=== PATIENT | female | born 1995 | race Two or more races ===

== ENCOUNTER 2025-01-27 00:05 | Observation (INO) | payer MEDICAID, SELFPAY ==
[2025-01-27] VITALS (16 sets, daily range): BP systolic 113–180; BP diastolic 61–93; PULSE 77–88; RESP 18–98; TEMP 37.1; BMI 40.9
[2025-01-27 00:55] LABS: Collection Type, Urine Clean Catch; RBC,Urine 0 /hpf (0-3); WBC,Urine 0 /hpf (0-5)
[2025-01-27 00:57] LABS: Basophils % (Auto) 0 % (0-2.5); Eosinophils # (Auto) 0.2 Thou/mm3 (0.0-0.5); Eosinophils % (Auto) 2 % (0-10); Hematocrit 38.6 % (36.0-46.0); Hemoglobin 13.2 g/dL (12.0-16.0); Immature Granulocytes % (Auto) 0 % (0-0); Immature Granulocytes Auto 0.04 Thou/mm3 (0.00-0.00); Lymphocytes # (Auto) 1.8 Thou/mm3 (1.0-4.8); Lymphocytes % (Auto) 16 % (10-50); Mean Corpuscular HGB Conc 34.2 g/dl (31.0-37.0); Mean Corpuscular Hemoglobin 27.7 pg (25.0-35.0); Mean Corpuscular Volume 81 fL (80-100); Monocytes # (Auto) 0.7 Thou/mm3 (0.0-0.8); Monocytes % (Auto) 7 % (0-12); Neutrophils # (Auto) 8.2 Thou/mm3 (1.8-7.7); Neutrophils % (Auto) 75 % (37-80); Nucleated Red Blood Cell % 0 /100 WBC (0); Platelet Count 146 Thou/mm3 (140-440); RDW Standard Deviation 39.5 fL (36.4-46.3); Red Blood Count 4.77 Miln/mm3 (4.00-5.20)
[2025-01-27 01:35] LABS: Bacteria,Urine Rare; Bilirubin,Urine Negative (Negative); Blood,Urine Negative (Negative); Clarity,Urine Clear (Clear/Hazy); Color,Urine Colorless (Lt Yel-Yel); Glucose, Urine Negative (Negative); Ketones,Urine Negative (Negative); Leukocyte Esterase,Urine Negative (Negative); Nitrite,Urine Negative (Negative); Protein,Urine Negative (Neg - Trace); Specific Gravity,Urine 1.005 (1.001-1.035); Squamous Epithelial Cell,Urine 2 /hpf (0-5); Urobilinogen,Urine Negative mg/dL (0.0-1.0)
[2025-01-27 01:48] LABS: INR 0.9 (0.9-1.3); Partial Thromboplastin Time 28.1 Seconds (22.0-36.0); Prothrombin Time 10.3 Seconds (9.0-12.2)
[2025-01-27 01:49] LABS: Alanine Aminotransferase 8 U/L (10-49); Albumin, Serum 3.9 gm/dL (3.5-5.0); Albumin/Globulin Ratio 1.6 (1.2-2.2); Alkaline Phosphatase 91 U/L (46-116); Anion Gap 10 (7-16); Aspartate Amino Transferase 17 U/L (0-34); BUN/Creatinine Ratio 26 Ratio (12-20); Bilirubin,Total 0.4 mg/dL (0.3-1.2); Blood Urea Nitrogen 13 mg/dL (9-23); Calcium (Corrected) 10.1 mg/dL (8.5-10.1); Carbon Dioxide 22.1 mMol/L (20.0-31.0); Chloride 106 mMol/L (98-107); Creatinine (Component) 0.5 mg/dL (0.6-1.3); Estimated Creatinine Clearance 167.3 mL/min (>60); Globulin 2.5 gm/dL (2.3-3.5); Glucose 103 mg/dL (74-106); Osmolality,Calculated 275 (275-295); Potassium 3.8 mMol/L (3.4-5.1); Sodium 138 mMol/L (136-145); Total Protein 6.4 gm/dL (5.7-8.2); Uric Acid 6.1 mg/dL (3.1-7.8); eGFR > 60 See Note
[2025-01-27 02:17] LABS: Fibrinogen 617 mg/dL (175-375)
== END 2025-01-27 04:46 | disposition home or self-care (01) ==
PROVIDERS: Admitting Provider Obstetrics & Gynecology; Visit Provider Obstetrics & Gynecology
DX: O47.1 False labor at or after 37 completed weeks of gestation (principal); Z3A.37 37 weeks gestation of pregnancy
CPT/HCPCS: 36415; 59899; 80053; 81001; 84550; 85025; 85384; 85610; 85730; G0378

== ENCOUNTER 2025-01-29 08:58 | Observation (INO) | payer MEDICAID, SELFPAY ==
[2025-01-29 09:04] VITALS: RESP 18; TEMP 37; BMI 40.8
[2025-01-29 09:11] VITALS: BP 157/89; PULSE 88
[2025-01-29 09:18] VITALS: BP 109/69; PULSE 88
--- NOTE | 2025-01-29 09:32 | PC.NURSE ---
DR CUBA CALLED AND GIVEN SBAR. 1ST BP READING AND FOLLOW UP GIVEN TO PROVIDER. PROVIDER WILL BE OVER TO SEE PT AND WOULD LIKE A SPECULUM. RN WILL GET THING READY FOR PROVIDER.
[2025-01-29 09:33] VITALS: BP 114/76; PULSE 82
[2025-01-29 09:48] VITALS: BP 116/71; PULSE 82
--- NOTE | 2025-01-29 10:00 | P.TNLD_ITS ---
Documentation for date of: 01/29/25 Hx History Provider: SHANIQUA Attending Provider: BEREKET : 1 Para: 0 Term: 0 : 0 Number of Living Children: 0 Abortions: Spontaneous & Elective: 0 # of Vaginal Deliveries:: 0 Hx Section: No Hx Vaginal Delivery Post : No Gestation Info Final MORGAN: 02/17/25 Complaint Complaint Complaint: LEAKING 06:00 CLEAR. 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
--- NOTE | 2025-01-29 10:01 | PC.NURSE ---
DR CUBA AT BEDSIDE ASSESSING PT. SPECULUM USED TO VISUALIZED VAGINAL CANAL NO LEAKING OF FLUID AND DR HAD PT COUGH AND NO FLUID VISUALIZED PER PROVIDER AFTER COUGH. PT CLEARED FOR DISCHARGE. VERBAL ORDER GIVEN
== END 2025-01-29 10:16 | disposition home or self-care (01) ==
PROVIDERS: Admitting Provider Student in an Organized Health Care Education/Training Program; Visit Provider Student in an Organized Health Care Education/Training Program
DX: Z34.03 Encounter for supervision of normal first pregnancy, third trimester (principal); Z3A.37 37 weeks gestation of pregnancy
CPT/HCPCS: 59025; 59899

== ENCOUNTER 2025-02-04 14:35 | Outpatient (RCR) | payer MEDICAID, SELFPAY ==
--- NOTE | 2025-01-14 14:32 | XR_ITS ---
Examination: Biophysical profile, ultrasound Date and time of exam: January 14, 2025 1504 hours INDICATIONS: Diagnosis diabetes Technique: Multiple transabdominal sonographic images of the pelvis abdomen obtained. Attention is directed to the breathing movement, gross body movement, amniotic fluid volume and tone. Findings: Amniotic fluid index 18.9 cm Total biophysical profile is 8 of 8. breathing movement is 2. Gross body movement is 2. tone is 2. Qualitative amniotic fluid volume is 2 Impression: Biophysical profile is 8 of 8.
[2025-01-14 15:27] VITALS: BP 138/80; PULSE 84; RESP 16
--- NOTE | 2025-01-17 14:09 | XR_ITS ---
Examination: Biophysical profile, ultrasound Date and time of exam: January 17, 2025 1412 hours INDICATIONS: Diagnosis pre-existing diabetes Technique: Multiple transabdominal sonographic images of the pelvis abdomen obtained. Attention is directed to the breathing movement, gross body movement, amniotic fluid volume and tone. Findings: 21.1 amniotic fluid index Total biophysical profile is 8 of 8. breathing movement is 2. Gross body movement is 2. tone is 2. Qualitative amniotic fluid volume is 2 Impression: Biophysical profile is 8 of 8.
[2025-01-17 14:56] VITALS: BP 140/84; PULSE 84; RESP 16; TEMP 37
--- NOTE | 2025-01-17 15:19 | PD.LDNST ---
Documentation for date of: 29 yrs old with diabetes for NST. sonogram show ROHIT ~ 21 cm. DENIES RESPIRATORY COMPLAINTS. HOME GLUCOSE LOG SHOW FBS IN RANGE OF 90. TODAY NST = REACTIVE PATTERN. NO COMPLAINTS. HAS SCHEDULED APPOINTMENT TOMORROW Antepartum Testing Patient Information Reason for Test: TYPE 2 DM ON INSULIN LMP: 05/04/24 EDC: 02/17/25 Gestational Age (weeks): 35 Gestational Age (days): 4 : 1 Para: 0 Date of Last Test: 01/14/25 Last Oral Intake: ATE AT 13:00 Clincal Data Temperature: 98.6 F Blood Pressure: 140/84 Respiratory Rate: 16 Pulse Rate: 84 Non-Stress Test Baseline FHR: 135 Non-Stress Test Result: Reactive Non-Stress Test Comment: PT HERE FOR SCHEDULED BPP/NST. PT REPORTS MOVEMENT AT THIS TIME. DENIES BLEEDING, NO LEAKING OF FLUID, NO REPORTS OF PAIN. PLACED ON EFM X 2. ABD SOFT TO PALPATION. MOVEMENT PALPATED WHILE PLACING MONITOR PARTS. Follow-Up Reschedule Date: 01/21/25 Reschedule Time: 15:30 US Results BPP: 05/10 ROHIT: 21.0
[2025-01-17 15:23] VITALS: BP 140/84; PULSE 84; RESP 16; TEMP 37
--- NOTE | 2025-01-21 14:29 | XR_ITS ---
Examination: Biophysical profile, ultrasound Date and time of exam: January 21, 2025 1500 hours INDICATIONS: Diagnosis diabetes Technique: Multiple transabdominal sonographic images of the pelvis abdomen obtained. Attention is directed to the breathing movement, gross body movement, amniotic fluid volume and tone. Findings: Amniotic fluid index 15.4 cm Total biophysical profile is 8 of 8. breathing movement is 2. Gross body movement is 2. tone is 2. Qualitative amniotic fluid volume is 2 Impression: Biophysical profile is 8 of 8.
[2025-01-21 15:43] VITALS: BP 142/89; PULSE 85; RESP 16; TEMP 36.9
--- NOTE | 2025-01-24 14:29 | XR_ITS ---
Examination: Biophysical profile, ultrasound Date and time of exam: January 24, 2025 1454 hours INDICATIONS: Diagnosis pre-existing diabetes Technique: Multiple transabdominal sonographic images of the pelvis abdomen obtained. Attention is directed to the breathing movement, gross body movement, amniotic fluid volume and tone. Findings: Amniotic fluid index 18.3 cm Total biophysical profile is 8 of 8. breathing movement is 2. Gross body movement is 2. tone is 2. Qualitative amniotic fluid volume is 2 Impression: Biophysical profile is 8 of 8.
[2025-01-24 15:31] VITALS: BP 136/80; PULSE 84; RESP 18; TEMP 36.9
--- NOTE | 2025-01-28 14:32 | XR_ITS ---
Examination: Biophysical profile, ultrasound Date and time of exam: January 20, 2025 1436 hours INDICATIONS: Diagnosis diabetes Technique: Multiple transabdominal sonographic images of the pelvis abdomen obtained. Attention is directed to the breathing movement, gross body movement, amniotic fluid volume and tone. Findings: Amniotic fluid index 13.9 cm Total biophysical profile is 8 of 8. breathing movement is 2. Gross body movement is 2. tone is 2. Qualitative amniotic fluid volume is 2 Impression: Biophysical profile is 8 of 8.
[2025-01-28 15:20] VITALS: BP 130/66; PULSE 85; RESP 16; TEMP 36.7
--- NOTE | 2025-02-04 14:40 | XR_ITS ---
Examination: Biophysical profile, ultrasound Date and time of exam: February 04, 2025 1443 hours INDICATIONS: Diagnosis type 2 diabetes Technique: Multiple transabdominal sonographic images of the pelvis abdomen obtained. Attention is directed to the breathing movement, gross body movement, amniotic fluid volume and tone. Findings: Amniotic fluid index 13.2 cm Total biophysical profile is 8 of 8. breathing movement is 2. Gross body movement is 2. tone is 2. Qualitative amniotic fluid volume is 2 Impression: Biophysical profile is 8 of 8.
[2025-02-04 15:59] VITALS: BP 133/69; PULSE 85; RESP 16; TEMP 36.7
== END 2025-02-04 23:59 | disposition home or self-care (01) ==
LOC: S4S1 14:35
PROVIDERS: PCP Family Medicine; Referring Provider Student in an Organized Health Care Education/Training Program; Visit Provider Student in an Organized Health Care Education/Training Program
DX: O24.113 Pre-existing type 2 diabetes mellitus, in pregnancy, third trimester (principal); E11.9 Type 2 diabetes mellitus without complications; Z3A.38 38 weeks gestation of pregnancy; Z79.4 Long term (current) use of insulin
CPT/HCPCS: 59025; 76819

== ENCOUNTER 2025-02-04 21:58 | Observation (INO) | payer MEDICAID, SELFPAY ==
[2025-02-04] VITALS (20 sets, daily range): BP systolic 138–168; BP diastolic 83–90; PULSE 90–106; RESP 16–98; TEMP 36.6; O2SAT 95–98; BMI 41.2
--- NOTE | 2025-02-04 23:31 | PD.LDTRIAGE2 ---
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 Assessment Systems Assessment Systems With in Normal Limits: Yes Contractions Evaluation Contractions Monitor Mode: External Contraction Frequency: 1-6 Contraction Duration: 40-120 Resting Tone Palpate: Soft Contraction Intensity: Mild Sterile Vaginal Exam Cervical Dilatation: 4 Cervical Effacement: 50 Station: -3 Vaginal Bleeding Vaginal Bleeding Amount: None Heart Monitoring Heart Rate Assessment Monitor Mode: External FHR Baseline: 135 Variability: Moderate Accelerations: 15x15 FHR Pattern Category: Category l Movement Reported: Yes NST Reactive: Yes WNL for GA: Yes Assessment Comment: audible movement Amniotic Membranes Amniotic Membranes Amniotic Membrane Status: Intact Social risk screen Social Risk Screening Observed or verbalized signs of abuse or neglect: No 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 pt denies headache, blurry vision, RUQ/epig pain, leaking of fluid, or vaginal bleeding. pt reports type 2 DM, positive movement and UCs. pt takes 16u novalog insulin with meals, 28U lantus at 0800 and 40U lantus at 2200. pt rates contraction pain 4/10 on pain scale.
--- NOTE | 2025-02-04 23:35 | PD.LDTRIAGE2 ---
Documentation for date of: 02/04/25 Hx History Provider: Melody Bernal Attending Provider: Ghassan Garvey : 1 Para: 0 Term: 0 : 0 Number of Living Children: 0 Abortions: Spontaneous & Elective: 0 # of Vaginal Deliveries:: 0 Hx Section: No Hx Vaginal Delivery Post : No Gestation Info Final MORGAN: 02/17/25 Gestational Age (weeks): 37 Gestational Age (days): 6 Complaint Complaint Complaint: UCs q5-10 min; high BP reading at home. PEDAL EDEMA PAST 2 WEEKS. 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 Assessment Systems Assessment Systems With in Normal Limits: Yes Contractions Evaluation Contractions Monitor Mode: External Contraction Frequency: 1-6 Contraction Duration: 40-120 Resting Tone Palpate: Soft Contraction Intensity: Mild Sterile Vaginal Exam Cervical Dilatation: 4 Cervical Effacement: 50 Station: -3 Vaginal Bleeding Vaginal Bleeding Amount: None Heart Monitoring Heart Rate Assessment Monitor Mode: External FHR Baseline: 135 Variability: Moderate Accelerations: 15x15 FHR Pattern Category: Category l Movement Reported: Yes NST Reactive: Yes WNL for GA: Yes Assessment Comment: audible movement Amniotic Membranes Amniotic Membranes Amniotic Membrane Status: Intact Social risk screen Social Risk Screening Observed or verbalized signs of abuse or neglect: No Shingle Cutter Referral: No RN Notes Notes LD Triage Comment: 2155: pt is at 38.1 wks who presents to triage c/o UCs q5-10 mins apart and a high BP reading at home (170/108). pt denies headache, blurry vision, RUQ/epig pain, leaking of fluid, or vaginal bleeding. pt reports type 2 DM, positive movement and UCs. pt takes 16u novalog insulin with meals, 28U lantus at 0800 and 40U lantus at 2200. pt rates contraction pain 4/10 on pain scale. WILL REPEAT BP OVER 39 MINUTES. GET [facility] LAB INCLUDE LFT, URIC ACID CBC, URINE FOR PROTEIN/ CREATININE RATIO
[2025-02-04 23:58] LABS: Collection Type, Urine Clean Catch
[2025-02-05] VITALS (12 sets, daily range): BP systolic 121–139; BP diastolic 74–87; PULSE 89–101; O2SAT 94–97
[2025-02-05 00:04] LABS: Basophils % (Auto) 0 % (0-2.5); Eosinophils # (Auto) 0.3 Thou/mm3 (0.0-0.5); Eosinophils % (Auto) 3 % (0-10); Hematocrit 38.8 % (36.0-46.0); Hemoglobin 13.8 g/dL (12.0-16.0); Immature Granulocytes % (Auto) 0 % (0-0); Immature Granulocytes Auto 0.04 Thou/mm3 (0.00-0.00); Lymphocytes # (Auto) 1.9 Thou/mm3 (1.0-4.8); Lymphocytes % (Auto) 17 % (10-50); Mean Corpuscular HGB Conc 35.6 g/dl (31.0-37.0); Mean Corpuscular Volume 79 fL (80-100); Monocytes # (Auto) 0.6 Thou/mm3 (0.0-0.8); Monocytes % (Auto) 5 % (0-12); Neutrophils # (Auto) 8.6 Thou/mm3 (1.8-7.7); Neutrophils % (Auto) 75 % (37-80); Nucleated Red Blood Cell % 0 /100 WBC (0); Platelet Count 167 Thou/mm3 (140-440); RDW Standard Deviation 39.6 fL (36.4-46.3); Red Blood Count 4.92 Miln/mm3 (4.00-5.20); White Blood Count 11.5 Thou/mm3 (3.6-11.0)
[2025-02-05 00:07] LABS: Bilirubin,Urine Negative (Negative); Blood,Urine Negative (Negative); Clarity,Urine Clear (Clear/Hazy); Color,Urine Colorless (Lt Yel-Yel); Glucose, Urine Negative (Negative); Ketones,Urine Negative (Negative); Leukocyte Esterase,Urine Positive (Negative); Nitrite,Urine Negative (Negative); Protein,Urine Negative (Neg - Trace); RBC,Urine 2 /hpf (0-3); Specific Gravity,Urine 1.008 (1.001-1.035); Squamous Epithelial Cell,Urine 3 /hpf (0-5); Urobilinogen,Urine Negative mg/dL (0.0-1.0); WBC,Urine 3 /hpf (0-5)
[2025-02-05 00:29] LABS: Alanine Aminotransferase 9 U/L (10-49); Albumin/Globulin Ratio 1.5 (1.2-2.2); Alkaline Phosphatase 120 U/L (46-116); Anion Gap 10 (7-16); Aspartate Amino Transferase 19 U/L (0-34); BUN/Creatinine Ratio 20 Ratio (12-20); Bilirubin,Total 0.3 mg/dL (0.3-1.2); Blood Urea Nitrogen 12 mg/dL (9-23); Calcium 9.6 mg/dL (8.3-10.6); Calcium (Corrected) 9.6 mg/dL (8.5-10.1); Carbon Dioxide 21.8 mMol/L (20.0-31.0); Chloride 105 mMol/L (98-107); Creatinine (Component) 0.6 mg/dL (0.6-1.3); Estimated Creatinine Clearance 139.9 mL/min (>60); Globulin 2.6 gm/dL (2.3-3.5); Glucose 95 mg/dL (74-106); Osmolality,Calculated 273 (275-295); Potassium 3.9 mMol/L (3.4-5.1); Sodium 137 mMol/L (136-145); Total Protein 6.6 gm/dL (5.7-8.2); Uric Acid 5.7 mg/dL (3.1-7.8); eGFR > 60 See Note
[2025-02-05 01:01] LABS: Fibrinogen 602 mg/dL (175-375); INR 0.9 (0.9-1.3); Partial Thromboplastin Time 26.6 Seconds (22.0-36.0); Prothrombin Time 9.8 Seconds (9.0-12.2)
[2025-02-05 01:17] LABS: Creatinine,Random Urine 26 mg/dL (30-125); Protein Total, Random Urine 12 mg/dL (1-14)
--- NOTE | 2025-02-05 01:23 | PD.LDTRIAGE2 ---
Documentation for date of: 02/05/25 Hx History Provider: Melody Bernal Attending Provider: Ghassan Garvey : 1 Para: 0 Term: 0 : 0 Number of Living Children: 0 Abortions: Spontaneous & Elective: 0 # of Vaginal Deliveries:: 0 Hx Section: No Hx Vaginal Delivery Post : No Gestation Info Final MORGAN: 02/17/25 Gestational Age (weeks): 37 Gestational Age (days): 6 Complaint Complaint Complaint: UCs q5-10 min; high BP reading at home. PEDAL EDEMA PAST 2 WEEKS. DENIES HEADACHES OR SCOTOMA 02/05/2025 REPEAT BP IN THE PAST 30 MINUTES HAVE BEEN NORMAL. LAB : NORMAL PLATELETS, NORMAL URIC ACID LEVEL, LFT = WNL. 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 Systems Assessment Systems Assessment Systems With in Normal Limits: Yes Contractions Evaluation Contractions Monitor Mode: External Contraction Frequency: 2-4 Contraction Duration: 90-120 Resting Tone Palpate: Soft Contraction Intensity: Mild Sterile Vaginal Exam Cervical Dilatation: 4 Cervical Effacement: 50 Station: -3 Vaginal Bleeding Vaginal Bleeding Amount: None Heart Monitoring Heart Rate Assessment Monitor Mode: External FHR Baseline: 135 Variability: Moderate Accelerations: 15x15 FHR Pattern Category: Category l FHT Interventions: Turn to Right Side and Turn to Left Side Movement Reported: Yes NST Reactive: Yes WNL for GA: Yes Assessment Comment: indeterminant deceleration- pt was just placed on monitor and repositioning self Amniotic Membranes Amniotic Membranes Amniotic Membrane Status: Intact Social risk screen Social Risk Screening Observed or verbalized signs of abuse or neglect: No 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 pt denies headache, blurry vision, RUQ/epig pain, leaking of fluid, or vaginal bleeding. pt reports type 2 DM, positive movement and UCs. pt takes 16u novalog insulin with meals, 28U lantus at 0800 and 40U lantus at 2200. pt rates contraction pain 4/10 on pain scale. WILL REPEAT BP OVER 39 MINUTES. GET [facility] LAB INCLUDE LFT, URIC ACID CBC, URINE FOR PROTEIN/ CREATININE RATIO
== END 2025-02-05 01:25 | disposition home or self-care (01) ==
PROVIDERS: Admitting Provider Obstetrics & Gynecology; Visit Provider Obstetrics & Gynecology
DX: O47.1 False labor at or after 37 completed weeks of gestation (principal); Z3A.38 38 weeks gestation of pregnancy; O24.913 Unspecified diabetes mellitus in pregnancy, third trimester; Z79.4 Long term (current) use of insulin; O26.893 Other specified pregnancy related conditions, third trimester; R03.0 Elevated blood-pressure reading, without diagnosis of hypertension
CPT/HCPCS: 36415; 59025; 59899; 80053; 81001; 82570; 84156; 84550; 85025; 85384; 85610; 85730; G0378

== ENCOUNTER 2025-02-06 22:25 | Inpatient (IN) | payer MEDICAID, SELFPAY ==
[2025-02-06] VITALS (8 sets, daily range): BP systolic 140–162; BP diastolic 81–95; PULSE 98–112; RESP 15–99; TEMP 36.6; BMI 41.2
--- NOTE | 2025-02-06 23:21 | PD.LDHP ---
Documentation for date of: 02/06/25 OB Labor/Induct. HPI History of Present Illness : 1 Para: 0 Term pregnancies: 0 pregnancies: 0 Living children: 0 History of Abortions: Spontaneous and Elective: 0 History of Vaginal deliveries: 0 History of sections: No History of : No MORGAN: 02/17/25 History of present illness: 29 y/o @38w3d, presented to triage with contractions and vaginal bleeding. Patient has pregestational diabetes complicating this and was taking novolog 16 before each meal and 28/40 lantus. Hba1c In [facility] beginning of care was 10 which in third trimester has been in 6-7 range. Debby was scheduled for an IOL tomorrow. Of note , patient presented 2 days ago with elevated BP readings and was discharged home by the superintendent production provider after preeclampsia labs were within normal range. Her BP however were elevated with non persistent sever range. Today on arrival debby has elevated BP, denied any headache, blurred vision and chest pain. History of Present Dating criteria: LMP confirmed by 1st trimester US Adequate Care: Yes Narrative: Anatomy posterior placenat no previa Past Medical History Surgical History SURGICAL: Negative Section Meds Home Medications and Allergies Home Medications ?Medication ?Instructions ?Recorded ?Confirmed ?Type aspirin 81 mg chewable tablet 1 tab PO QDAY 02/04/25 02/07/25 History folic acid 1 mg tablet 1 mg PO QDAY 02/04/25 02/07/25 History insulin aspart U-100 100 unit/mL 16 unit subcut .with meals 02/04/25 02/07/25 History subcutaneous solution (Novolog U-100 Insulin aspart) insulin glargine 100 unit/mL 28 unit subcut .AM 02/04/25 02/07/25 History subcutaneous solution (Lantus U-100 Insulin) vit no.95-ferrous 1 tab PO QDAY 02/04/25 02/07/25 History fumarate 28 mg-folic acid 800 mcg tablet () Allergies Allergy/AdvReac Type Severity Reaction Status Date / Time No Known Allergies Allergy Verified 02/07/25 02:31 OB Exam Physical Exam Vital signs: Temp Pulse Resp BP 97.9 F 106 H 15 162/89 H 02/06/25 22:45 02/06/25 23:18 02/06/25 22:45 02/06/25 23:18 Constitutional Constitutional: no acute distress Routine HEENT Exam Head: Present normocephalic and atraumatic Eye: Present EOMI and PERRL ENT: Present mucous membranes moist Routine Neck Exam Neck: Present supple and trachea midline Routine Cardiovascular Exam Cardiovascular: Present RRR Routine Abdominal Exam Abdominal: Present soft and normoactive bowel sounds Detailed Labor and Delivery Exam Dilation (cm): 4-5 station: -3 Comments: contractions 3-4 min apart vaginal bleeding + category 1 FHT Routine Extremities Exam Extremities: Present full ROM Routine Skin Exam Skin: Present intact, dry and warm Routine Neurological Exam Neurological: Present alert, oriented X3 and CN II-XII intact Routine Psychiatric Exam Psychiatric: Present normal affect and normal thought process OB Results Labs 02/06/25 00:00 02/06/25 00:00 Impressions Impression: 29 y/o @ 38w3d admitetd for Augmentation of labor for pregestational Diabetes on insulin and GHTN, possible preeclampsia Preclampsia labs pending US for ruling out placental abruption, Presentation and EFW GBS -ve 4-5 /50/-3 type2 dm on insulin BS 4 times daily Labetalol to be started I called back again at 4 am as I had not gotten an update on [facility] preclampsia labs. Debby on chart review had normal preclampsia labs except for elevated fibrinogen( possible from oregnancy). BP were in severe ranges around 2 am , but I was not called about it. she had recived labetalol 400 on admission and is getting ready to have an epidural. Anticipating BP drop ,I ordered labetalol 200 only if after epidural th eBP is still at 150 systolivc or higher. Currently debby is 6 cm . BS q4 as she is starting pitocin. US on image review was cephalic , no abruption noted and efw 3500 on prelim report as per Rohan. OB Assessment & Plan Additional Plan Additional Plan Comment: admit to L&D
[2025-02-07] VITALS (265 sets, daily range): BP systolic 94–210; BP diastolic 60–128; PULSE 83–124; RESP 9–29; TEMP 36.8–38.1; O2SAT 85–100; BMI 41.2
--- NOTE | 2025-02-07 | XR_ITS ---
Examination: Complete OB ultrasound greater than 14 weeks Date and time of exam: February 07, 2025 0116 hours INDICATIONS: Vaginal bleeding and pelvic contractions today Findings: Viable intrauterine single fetus with single amniotic sac presentation cephalic Cardiac motion 137 BPM Placenta fundal grade 2 Umbilical cord insertion seen Amniotic fluid index 13.2 cm Ovaries and cervix obscured by bowel gas Mild hydroceles Composite estimated gestational age based on BPD, head circumference, abdominal circumference, femur length is 38 weeks 5 days Estimated weight 3551.9 g. Survey of intracranial anatomy, spinal anatomy, abdominal anatomy, four-chamber heart performed with no abnormalities identified. Impression: Viable intrauterine gestation cephalic presentation.
[2025-02-07] MEDS: RINGERS LACTATED 1000 ML 1,000 ML 125 ML IV ×2 (00:15→13:51)
[2025-02-07] MEDS: LABETALOL 100 MG TABLET 400 MG PO ×2 (00:18→09:16)
[2025-02-07 00:27] LABS: Collection Type, Urine Clean Catch
[2025-02-07 00:32] LABS: Basophils % (Auto) 0 % (0-2.5); Eosinophils # (Auto) 0.2 Thou/mm3 (0.0-0.5); Eosinophils % (Auto) 1 % (0-10); Hematocrit 38.7 % (36.0-46.0); Hemoglobin 13.3 g/dL (12.0-16.0); Immature Granulocytes % (Auto) 0 % (0-0); Immature Granulocytes Auto 0.04 Thou/mm3 (0.00-0.00); Lymphocytes # (Auto) 1.6 Thou/mm3 (1.0-4.8); Lymphocytes % (Auto) 11 % (10-50); Mean Corpuscular HGB Conc 34.4 g/dl (31.0-37.0); Mean Corpuscular Hemoglobin 27.8 pg (25.0-35.0); Mean Corpuscular Volume 81 fL (80-100); Monocytes # (Auto) 0.8 Thou/mm3 (0.0-0.8); Monocytes % (Auto) 6 % (0-12); Neutrophils # (Auto) 12.1 Thou/mm3 (1.8-7.7); Neutrophils % (Auto) 82 % (37-80); Nucleated Red Blood Cell % 0 /100 WBC (0); Platelet Count 157 Thou/mm3 (140-440); RDW Standard Deviation 39.9 fL (36.4-46.3); Red Blood Count 4.79 Miln/mm3 (4.00-5.20); White Blood Count 14.7 Thou/mm3 (3.6-11.0)
[2025-02-07 00:38] LABS: Bilirubin,Urine Negative (Negative); Blood,Urine 3+ (Negative); Clarity,Urine Turbid (Clear/Hazy); Glucose, Urine Negative (Negative); Ketones,Urine Negative (Negative); Leukocyte Esterase,Urine Positive (Negative); Nitrite,Urine Negative (Negative); Protein,Urine 1+ (Neg - Trace); RBC,Urine 905 /hpf (0-3); Specific Gravity,Urine 1.012 (1.001-1.035); Squamous Epithelial Cell,Urine 4 /hpf (0-5); Urobilinogen,Urine Negative mg/dL (0.0-1.0); WBC,Urine 53 /hpf (0-5)
[2025-02-07 00:44] LABS: Color,Urine Yellow (Lt Yel-Yel)
[2025-02-07 00:48] LABS: Alanine Aminotransferase 10 U/L (10-49); Albumin, Serum 3.9 gm/dL (3.5-5.0); Albumin/Globulin Ratio 1.4 (1.2-2.2); Alkaline Phosphatase 115 U/L (46-116); Anion Gap 10 (7-16); Aspartate Amino Transferase 19 U/L (0-34); BUN/Creatinine Ratio 23 Ratio (12-20); Bilirubin,Total 0.4 mg/dL (0.3-1.2); Blood Urea Nitrogen 14 mg/dL (9-23); Calcium (Corrected) 9.1 mg/dL (8.5-10.1); Carbon Dioxide 22.9 mMol/L (20.0-31.0); Chloride 105 mMol/L (98-107); Creatinine (Component) 0.6 mg/dL (0.6-1.3); Globulin 2.7 gm/dL (2.3-3.5); Glucose 109 mg/dL (74-106); LDH (Lactate Dehydrogenase) 196 U/L (120-246); Osmolality,Calculated 277 (275-295); Potassium 3.8 mMol/L (3.4-5.1); Sodium 138 mMol/L (136-145); Total Protein 6.6 gm/dL (5.7-8.2); Uric Acid 6.2 mg/dL (3.1-7.8); eGFR > 60 See Note
[2025-02-07 01:06] LABS: Syphilis Nonreactive (Nonreactive)
[2025-02-07 01:28] LABS: INR 0.9 (0.9-1.3); Partial Thromboplastin Time 27.6 Seconds (22.0-36.0); Prothrombin Time 9.9 Seconds (9.0-12.2)
[2025-02-07 01:29] LABS: Fibrinogen 703 mg/dL (175-375)
[2025-02-07] MEDS: fentaNYL CIT INJ 50 mCg/ML AMP 2ML 100 MCG IV (02:02)
--- NOTE | 2025-02-07 03:09 | PRELIM_ITS ---
Obstetric ultrasound with Doppler. February 07, 2025 at 0116 hours Clinical history: Vaginal bleeding, EFW, presentation. Comparison: None. Findings: There is a gravid uterus with a live fetus in cephalic presentation of mean gestational age 38 weeks and 5 days (by biometry). cardiac activity is present at a heart rate of 137 beats per minute. The placenta is fundal in location, grade 2. There is no evidence of placenta previa or retroplacental hemorrhage. Amniotic fluid is adequate (ROHIT = 13.2 cm). Estimated weight is 3552 grams. No abnormalities detected by Doppler. Bilateral hydroceles. Impression: Gravid uterus with a single live fetus in cephalic presentation of mean gestational age 38 weeks 5 days. Bilateral hydroceles. Please, correlate clinically. Report Electronically Signed By: Omar Euceda 02/07/2025 3:07:56 AM [EST]
--- NOTE | 2025-02-07 13:40 | PD.LDPN ---
Documentation for date of: 02/07/25 OB Labor Progress Note Pelvic Exam Dilation (cm): 9 Effacement (%): 90 station: 0 Amniotic membrane status: Ruptured Comments: Thin meconium Contractions Monitor mode: External Contraction frequency: 3-4 Contraction intensity: Strong Status status: Category l Assessment and Plan Comments: Gestational HTN Anticipate Labetalol 20mg IV push Informed consent obtained. Patient made aware of the risks complications alternatives and benefits of Operative Vaginal Delivery and C/S and agrees with these modes of delivery if indicated.
[2025-02-07] MEDS: LABETALOL INJ 5 MG/ML VIAL 20 ML 20 MG IVP (13:53)
[2025-02-07] MEDS: hydrALAZINE INJ 20 MG/ML VIAL 10 MG IV (14:34)
--- NOTE | 2025-02-07 15:55 | PD.LDPN ---
Documentation for date of: 02/07/25 OB Labor Progress Note Pelvic Exam Dilation (cm): 9 Effacement (%): 90 station: -1 Amniotic membrane status: Ruptured Comments: Caput , Molding Blood in [place]averde Contractions Monitor mode: External Contraction frequency: 2-3 Contraction intensity: Strong Status status: Category ll Assessment and Plan Comments: Uncontrolled HTN despite multiple doses of Labetalol and Hydralazine and Epidural No change in cervix for > 4 hours with caput and molding and blood in L[place]de catheter Recommend Delivery Informed consent was obtained. The patient was made aware of the risks, complications, alternatives and benefits of the proposed procedure and she agrees.
[2025-02-07] MEDS: ceFAZolin/D5W 2 GM IV 2 GM/100 ML BAG IV (16:05)
[2025-02-07] MEDS: CITRIC ACID/SODIUM CITR 15 ML UDC (BICITRA) 30 ML PO (16:06)
[2025-02-07] MEDS: FAMOTIDINE INJ 10 MG/ML VIAL 2 ML 20 MG IV (16:06)
[2025-02-07] MEDS: MISOPROSTOL 200 mCg TABLET 800 MCG PR (17:07)
--- NOTE | 2025-02-07 17:24 | ESOP_ITS ---
Operative Note - [facility]NER Procedure Date of procedure: 02/07/25 Procedure Performed: Primary low-transverse section Via Pfannenstiel skin incision Indication: Intrauterine at 38 weeks and 3 days Active Labor Class B diabetes mellitus Chronic hypertension with superimposed preeclampsia with severe features and uncontrolled hypertension Arrest of dilatation Pre-Op diagnosis: Intrauterine at 38 weeks and 3 days Active Labor Class B diabetes mellitus Chronic hypertension with superimposed preeclampsia with severe features and uncontrolled hypertension Arrest of dilatation Post-Op diagnosis: Intrauterine at 38 weeks and 3 days Active Labor Class B diabetes mellitus Chronic hypertension with superimposed preeclampsia with severe features and uncontrolled hypertension Arrest of dilatation Anesthesia type: Epidural Specimen: none Estimated blood loss (ml): 800 Findings: Viable male infant, cephalic presentation, occiput posterior, nuchal cord x 2, meconium stained amniotic fluid, Apgars 8/9 Uterus ovaries and fallopian tubes grossly within normal limits Placenta removed complete intact Complications: none Narrative: After proper informed consent was obtained and the patient made aware the risk complication alternative benefits of the proposed procedure she was taken the operating room where she underwent induction of epidural anesthesia. She is prepped and draped you sterile fashion. A timeout was performed. Pfannenstiel skin incision was made with the scalpel carried through to the underlying layer fascia with the Bovie. The inferior aspect the fascia incision was grasped Sandie clamps elevated the underlying rectus muscle dissected off with the Bovie. T. The peritoneum was elevated between 2 Lr clamps and entered sharply with the Metzenbaum scissors. The incision was extended superiorly and inferiorly with good realization of the bladder. The bladder blade was then inserted and the vesicouterine peritoneum was incised transversely and bladder flap created digitally the bladder blade was reinserted and the lower uterine segment incised transversely with a scalpel. The head delivered. The mouth and nose were suctioned with a bulb suction. The nuchal cord was reduced. The shoulders delivered atraumatically. The cord was clamped and cut. The infant was handed off the waiting pediatric staff. Cord blood was sent. The placenta was then removed manually. The uterus exteriorized and cleared of all clots and debris. The uterine incision was then closed with #1-0 chromic suture in a running interlocking fashion. A second layer of the same suture was then used to imbricate the first layer and obtain excellent hemostasis. The vesicouterine peritoneum was closed with 2-0 chromic catgut suture in running fashion. The uterus was returned to the abdomen. The fundus was firm. The gutters were cleared of all clots and debris. The peritoneum was closed with 0 chromic suture running fashion. The muscle was closed with 0 chromic catgut suture in a running fashion. The fascia was closed with 0 Vicryl beginning at each angle and ending at the center in a running fashion. The subcutaneous tissue was irrigated with normal saline solution found to be hemostatic and closed with 2-0 chromic catgut suture in a running fashion the skin was closed with 4-0 Darke cryl. A Dermabond Prineo dressing was applied a sterile pressure dressing was applied. She tolerated the procedure well counts were correct. Surgical staff CATHLEEN Garcia CRNA Operation Date: 02/07/25 16:15 <No data on this case meets the specified criteria> Diagnosis Problem List Completed Was Problem List Reviewed/Reconciled?: Yes
--- NOTE | 2025-02-07 17:39 | ESDS_ITS ---
DS: Providers Provider Date of admission: 02/06/25 23:20 Primary care physician: Physician No Primary/Family Admitting Provider: Melody Bernal MD Attending Provider on Admission: Dipak Raines MD Attending Provider on DC: Dipak Raines MD Discharging Provider: Dipak Raines MD DS: Diagnosis Discharge Diagnosis (1) endometritis: Status: Acute (2) Postoperative fever: Status: Acute (3) Hypertension, uncontrolled: Status: Acute (4) Pregestational diabetes mellitus, modified White class B: Status: Acute (5) Pre-eclampsia added to pre-existing hypertension: Status: Acute Problem List Completed Was Problem List Reviewed/Reconciled?: Yes Summary/Hosp Course Brief History: 29 y/o @38w3d, presented to triage with contractions and vaginal bleeding. Patient has pregestational diabetes complicating this and was taking novolog 16 before each meal and 28/40 lantus. Hba1c In [facility] beginning of care was 10 which in third trimester has been in 6-7 range. Debby was scheduled for an IOL tomorrow. Of note , patient presented 2 days ago with elevated BP readings and was discharged home by the alteration tailor provider after preeclampsia labs were within normal range. Her BP however were elevated with non persistent sever range. Today on arrival debby has elevated BP, denied any headache, blurred vision and chest pain. Peripartum Data Delivery Method: Low Transverse Episiotomy Description: None Procedures: Procedures Operation Date: 02/07/25 16:15 <No data on this case meets the specified criteria> Time Spent with Patient Time attestation: Total time spent providing and/or coordinating discharge services: Exam Vital Signs Temp Pulse Resp BP Pulse Ox 98.2 F 103 H 17 163/90 H 98 02/07/25 14:38 02/07/25 16:12 02/07/25 14:38 02/07/25 16:12 02/07/25 16:10 Discharge Plan Plan Patient Disposition: HOME (Self Care) Patient condition on transfer: Stable Prescriptions/Referrals Prescriptions/Med Rec: No Action acetaminophen 325 mg capsule 650 mg PO Q6H PRN (Reason: pain) Qty: 30 0RF insulin aspart U-100 [Novolog U-100 Insulin aspart] 100 unit/mL solution 16 unit subcut .with meals PNV cmb#95-ferrous fumarate-FA [] 28 mg iron- 800 mcg tablet 1 tab PO QDAY Patient Comments: TAKE 1 TABLET BY MOUTH ONCE DAILY FOR 90 DAYS aspirin 81 mg tablet,chewable 1 tab PO QDAY Patient Comments: CHEW AND SWALLOW 1 TABLET BY MOUTH ONCE DAILY folic acid 1 mg tablet 1 mg PO QDAY Patient Comments: TAKE 1 TABLET BY MOUTH ONCE DAILY insulin glargine [Lantus U-100 Insulin] 100 unit/mL solution 28 unit SUBCUT .AM Patient Comments: 40U subq PM Referrals: No Primary/Family,Physician [Primary Care Provider] - Patient/Caregiver Discharge Instructions Discharge Activity: activity as tolerated Other Discharge Activity Instructions:: Follow up office [address] Bernal. Education Materials: C Section Dc Print Language: Indian Stand Alone Forms: Jamila Award Info., Patient Portal Info Letter Planned Discharge Date 02/09/25
--- NOTE | 2025-02-07 17:39 | PD.LDDELS ---
Data (Dimas) Data Hx Section: No : 1 Term: 0 : 0 Livin Abortions: Spontaneous & Theraputic: 0 Delivery Data (Dimas) Labor Data Initiation of labor: Spontaneous Induction/Augmentation Agent: Artificial ROM ROM date: 02/07/25 ROM time: 13:40 Amniotic membrane rupture type: Artificial Amniotic fluid description: Moderate Meconium Delivery Data EDC: 02/18/25 EDC calculated by:: LMP/early US confirmation Onset of labor date: 02/06/25 Onset of labor time: 23:00 [place] delivery date: 02/07/25 [place] delivery time: 15:35 Gestational age (weeks): 38 Gestational age (days): 3 Placenta delivery date: 02/07/25 Placenta delivery time: 15:37 Delivered by: Delivery nurse: bony Pretty nurse: familia Marine Service Operator at delivery: Yes Support person(s) at delivery: fob Other staff at delivery: jackie Delivery Method Delivery: Delivery Type: Primary Presentation: Vertex Position: OP Anesthesia Type Primary Anesthesia: Epidural Placenta Placenta Delivery: Manual Placenta Cultures Obtained: No Placenta Sent for Examination: No Cord Sample: Cord Blood Obtained EBL Estimated blood loss (ml): 800 Umbilical Cord Nuchal Cord: x2 Tightly Additional Procedures None Complications Complications: None Data (Dimas) Data order: 1 's gender: Male weight (gms): 8 lb 0.044 oz Weight (pounds): 8 lbs and 0.0 ozs
[2025-02-07] MEDS: OXYTOCIN in NS 20 units 20 UNIT/1,000 ML BAG 125 UNIT IV (17:51)
--- NOTE | 2025-02-07 20:04 | XR_ITS ---
Examination: AP chest single view Admitting one AP portable upright chest single view. Examination time: February 07, 2025 2018 hours INDICATIONS: Sepsis protocol FINDINGS: Minimal prominence left ventricle No pneumonia or pulmonary edema The osseous structures are intact IMPRESSION: No pneumonia identified
--- NOTE | 2025-02-07 20:06 | EKG_ITS ---
[facility] Test Date: 2025-02-07 Pat Name: ARDEN CASTANEDA [facility] Gender: Female Anthropology Instructor: LOLLY : 1995 Requested By: Dipak Mitchell Order Number: [id number] Reading MD: Dipak Mitchell Measurements Intervals [place] Rate: 112 P: 61 MN: 173 QRS: 59 QRSD: 64 T: 26 QT: 296 QTc: 405 Interpretive Statements SINUS TACHYCARDIA ABNORMAL RHYTHM ECG No previous ECG available for comparison /store/S0/[id number]/ecg/[id number].pdf
--- NOTE | 2025-02-07 20:07 | ESPR_ITS ---
Subjective Subjective Interval history: Called for T 100.4. No cough, SOB, chest pain, headache or stiff neck or flank pain. No excessive vaginal bleeding. No dizziness or lightheadedness. UO adequate at 350 cc. Exam Vital Signs Temp Pulse Resp BP Pulse Ox O2 Del Method 99.0 F 118 H 29 H 144/82 H 95 Room Air 02/07/25 18:30 02/07/25 19:30 02/07/25 19:30 02/07/25 19:30 02/07/25 19:30 02/07/25 19:30 Routine Respiratory Exam Comments: CTA B/L Routine Cardiovascular Exam Comments: Tachycardic but regular rhythm. Routine Abdominal Exam Comments: Mild gaseous distension, Dressing dry and intact, Fundus firm. Routine Extremities Exam Comments: Nontender Objective Labs 02/06/25 00:00 02/06/25 00:00 Labs: Laboratory Results - last 24 hr 02/06/25 00:00 WBC 14.7 H RBC 4.79 Hgb 13.3 Hct 38.7 MCV 81 MCH 27.8 MCHC 34.4 RDW Std Deviation 39.9 Plt Count 157 Neut % (Auto) 82 H Lymph % (Auto) 11 [place] % (Auto) 6 Eos % (Auto) 1 Baso % (Auto) 0 Neut # (Auto) 12.1 H Lymph # (Auto) 1.6 [place] # (Auto) 0.8 Eos # (Auto) 0.2 Baso # (Auto) 0.0 Immature Gran # (Auto) 0.04 H Absolute Nucleated RBC 0.00 Immature Gran % 0 Nucleated RBC % 0 PT 9.9 INR 0.9 APTT 27.6 Fibrinogen 703 H* Sodium 138 Potassium 3.8 Chloride 105 Carbon Dioxide 22.9 Anion Gap 10 BUN 14 Creatinine 0.6 Estim Creat Clear Calc 140.0 eGFR > 60 BUN/Creatinine Ratio 23 H Glucose 109 H Calculated Osmolality 277 Uric Acid 6.2 Calcium 9.0 Corrected Calcium 9.1 Total Bilirubin 0.4 AST 19 ALT 10 Alkaline Phosphatase 115 Lactate Dehydrogenase 196 Total Protein 6.6 Albumin 3.9 Globulin 2.7 Albumin/Globulin Ratio 1.4 Ur Collection Type Clean Catch Urine Color Yellow Urine Clarity Turbid A Urine pH 7.0 Ur Specific [place] 1.012 Urine Protein 1+ A Urine Glucose (UA) Negative Urine Ketones Negative Urine Blood 3+ A Urine Nitrite Negative Urine Bilirubin Negative Urine Urobilinogen (Auto) Negative Ur Leukocyte Esterase Positive Urine RBC 905 H Urine WBC 53 H Ur Squamous Epith Cells 4 Urine Bacteria None Syphilis Serology Nonreactive Blood Type O Positive Antibody Screen NEGATIVE Blood Bank Wristband ID Yes Assessment & Plan Problem List (1) Postoperative fever: Status: Acute Assessment and plan: Endometritis suspected Unasyn and Gentamycin Septic work up Time Spent With Patient Time: Total time spent is greater than 50% in coordination of care (as documented) at patient's floor/unit and/or counseling patient:
[2025-02-07] MEDS: AMPICILLIN/SULBAC INJ 3 GM in SODIUM CHLORIDE 0.9% (POP) 100 ML IV (20:22)
[2025-02-07 20:47] LABS: Lactate (Lactic Acid) 1.9 mMol/L (0.4-2.0)
[2025-02-07 20:50] LABS: Collection Type, Urine Catheter; Squamous Epithelial Cell,Urine 0 /hpf (0-5)
[2025-02-07 20:53] LABS: Basophils % (Auto) 0 % (0-2.5); Eosinophils % (Auto) 0 % (0-10); Hematocrit 36.2 % (36.0-46.0); Hemoglobin 12.5 g/dL (12.0-16.0); Immature Granulocytes % (Auto) 1 % (0-0); Immature Granulocytes Auto 0.11 Thou/mm3 (0.00-0.00); Lymphocytes # (Auto) 1.1 Thou/mm3 (1.0-4.8); Lymphocytes % (Auto) 6 % (10-50); Mean Corpuscular HGB Conc 34.5 g/dl (31.0-37.0); Mean Corpuscular Hemoglobin 27.6 pg (25.0-35.0); Mean Corpuscular Volume 80 fL (80-100); Monocytes # (Auto) 0.7 Thou/mm3 (0.0-0.8); Monocytes % (Auto) 4 % (0-12); Neutrophils # (Auto) 15.5 Thou/mm3 (1.8-7.7); Neutrophils % (Auto) 89 % (37-80); Nucleated Red Blood Cell % 0 /100 WBC (0); Platelet Count 157 Thou/mm3 (140-440); RDW Standard Deviation 40.8 fL (36.4-46.3); Red Blood Count 4.53 Miln/mm3 (4.00-5.20); White Blood Count 17.5 Thou/mm3 (3.6-11.0)
[2025-02-07] MEDS: LABETALOL 100 MG TABLET 200 MG PO (20:53)
[2025-02-07] MEDS: Gentamicin 320 MG in SODIUM CHLORIDE 0.9% 100 ML 108 MG IV (20:58)
[2025-02-07 21:04] LABS: Bilirubin,Urine Negative (Negative); Blood,Urine 3+ (Negative); Clarity,Urine Clear (Clear/Hazy); Color,Urine Lt-Yellow (Lt Yel-Yel); Glucose, Urine Negative (Negative); Ketones,Urine Negative (Negative); Leukocyte Esterase,Urine Negative (Negative); Nitrite,Urine Negative (Negative); Protein,Urine Negative (Neg - Trace); RBC,Urine 744 /hpf (0-3); Specific Gravity,Urine 1.012 (1.001-1.035); Urobilinogen,Urine Negative mg/dL (0.0-1.0); WBC,Urine 4 /hpf (0-5)
[2025-02-07 21:05] LABS: Partial Thromboplastin Time 28.3 Seconds (22.0-36.0); Prothrombin Time 10.5 Seconds (9.0-12.2)
[2025-02-07 21:07] LABS: B-Type Natriuretic Peptide 110 pg/mL (0-100)
[2025-02-07 21:17] LABS: Alanine Aminotransferase 7 U/L (10-49); Albumin, Serum 3.4 gm/dL (3.5-5.0); Albumin/Globulin Ratio 1.5 (1.2-2.2); Alkaline Phosphatase 90 U/L (46-116); Anion Gap 8 (7-16); Aspartate Amino Transferase 18 U/L (0-34); BUN/Creatinine Ratio 20 Ratio (12-20); Bilirubin,Total 0.6 mg/dL (0.3-1.2); Blood Urea Nitrogen 10 mg/dL (9-23); Calcium 8.5 mg/dL (8.3-10.6); Carbon Dioxide 22.3 mMol/L (20.0-31.0); Chloride 105 mMol/L (98-107); Creatinine (Component) 0.5 mg/dL (0.6-1.3); Estimated Creatinine Clearance 168.1 mL/min (>60); Globulin 2.3 gm/dL (2.3-3.5); Glucose 119 mg/dL (74-106); Osmolality,Calculated 270 (275-295); Potassium 3.5 mMol/L (3.4-5.1); Procalcitonin 0.19 ng/ml (0.0-0.49); Sodium 135 mMol/L (136-145); Total Protein 5.7 gm/dL (5.7-8.2); Troponin I < 0.020 ng/mL (0.0-0.045); eGFR > 60 See Note
--- NOTE | 2025-02-07 22:00 | PC.NURSE ---
1958- Dr. Raines called and notified of current temp 100.6, HR 116, BP 159/96. RN made OB aware of HR (110-127) through entire recovery & pt reports feeling flushed. Dr. Raines states will put in septic workup orders and antibiotics. 2001- Maternal sepsis called.
[2025-02-08] VITALS (9 sets, daily range): BP systolic 146–178; BP diastolic 82–106; PULSE 63–112; RESP 16–20; TEMP 36.6–37.7; O2SAT 95–98; BMI 41.1
[2025-02-08] MEDS: AMPICILLIN/SULBAC INJ 3 GM in SODIUM CHLORIDE 0.9% (POP) 100 ML IV ×4 (03:20→22:14)
[2025-02-08] MEDS: OXYTOCIN in NS 20 units 20 UNIT/1,000 ML BAG 125 UNIT IV (03:32)
[2025-02-08] MEDS: KETOROLAC INJ 30 MG/ML VIAL IVP (05:19)
[2025-02-08] MEDS: INSULIN GLARGINE (Lantus) 5 UNIT/0.05 ML (PER 5 UNITS) 28 UNIT SC (07:03)
[2025-02-08 08:04] LABS: Gentamicin, Random 0.7 mcg/mL (4.0-10.0)
[2025-02-08] MEDS: INSULIN LISPRO (AdmeLOG) 1 UNIT/0.01 ML UNIT 10 UNIT SC ×2 (08:38→21:18)
[2025-02-08] MEDS: ENOXAPARIN SOD INJ 40 MG/0.4 ML SYRINGE SC (09:27)
[2025-02-08] MEDS: DOCUSATE SOD 100 MG CAPSULE PO (09:27)
[2025-02-08] MEDS: LABETALOL 100 MG TABLET 200 MG PO (09:29)
[2025-02-08] MEDS: PRENATAL VITAMIN/FE FUM/FA TABLET 1 TAB PO (09:30)
[2025-02-08] MEDS: FOLIC ACID 1 MG TABLET PO (09:30)
[2025-02-08] MEDS: ASPIRIN 81 MG CHEW PO (09:54)
[2025-02-08] MEDS: IBUPROFEN TAB 400 MG TABLET 800 MG PO ×2 (13:28→22:13)
[2025-02-08] MEDS: SODIUM CHLORIDE 0.9% 250 ML 250 ML 20 ML IV (15:22)
[2025-02-08] MEDS: INSULIN GLARGINE (Lantus) 5 UNIT/0.05 ML (PER 5 UNITS) 14 UNIT SC (17:42)
--- NOTE | 2025-02-08 18:07 | PD.LDPPPRG ---
Subjective Subjective Interval history: Patient is a 29-year-old G1 now P1 001 status post primary by Dr Raines 02/07/2025. Her was for failure to progress with with uncontrolled blood pressures. She did have a postoperative fever and is on Unasyn and gentamicin. She was also diagnosed with diabetes this . She states she did not know she was diabetic and during her her hemoglobin A1c was 10. She got this down to about a 6 during . She states before delivery she was on 28 units of Lantus in the morning 16 units of lispro with each meal and 40 units of Lantus before bed. Dr Raines has decreased her regimen to 28 units Lantus in the morning and 10 units of lispro with each meal and 28 units at nighttime. Her blood sugars have actually been very well-controlled today and I have held her lispro with each meal. I bumped down her Lantus before bed to 14. The baby is in the NICU and patient is interested in breast-feeding. I did order a nutrition consult for the patient. The patient [facility] a [facility] of [facility]. She is on labetalol 200 mg p.o. twice daily. Exam Vital Signs Temp Pulse Resp BP Pulse Ox O2 Del Method 100 F 85 16 148/82 H 96 Room Air 02/08/25 12:00 02/08/25 12:00 02/08/25 12:00 02/08/25 12:00 02/08/25 12:00 02/08/25 12:00 Narrative Exam Patient is alert and oriented x 3 in bed resting comfortably. Fundus is firm incision is dressed and dry Objective Labs 02/07/25 20:27 02/07/25 20:27 Labs: Laboratory Results - last 24 hr 02/06/25 02/07/25 02/07/25 00:00 20:23 20:27 WBC 17.5 H RBC 4.53 Hgb 12.5 Hct 36.2 MCV 80 MCH 27.6 MCHC 34.5 RDW Std Deviation 40.8 Plt Count 157 Neut % (Auto) 89 H Lymph % (Auto) 6 L [place] % (Auto) 4 Eos % (Auto) 0 Baso % (Auto) 0 Neut # (Auto) 15.5 H Lymph # (Auto) 1.1 [place] # (Auto) 0.7 Eos # (Auto) 0.0 Baso # (Auto) 0.0 Immature Gran # (Auto) 0.11 H Absolute Nucleated RBC 0.00 Immature Gran % 1 H Nucleated RBC % 0 PT 10.5 INR 1.0 APTT 28.3 Sodium 135 L Potassium 3.5 Chloride 105 Carbon Dioxide 22.3 Anion Gap 8 BUN 10 Creatinine 0.5 L Estim Creat Clear Calc 168.1 eGFR > 60 BUN/Creatinine Ratio 20 Glucose 119 H Calculated Osmolality 270 L Lactic Acid 1.9 Calcium 8.5 Corrected Calcium 9.0 Total Bilirubin 0.6 AST 18 ALT 7 L Alkaline Phosphatase 90 D Troponin I < 0.020 B-Natriuretic Peptide 110 H Total Protein 5.7 Albumin 3.4 L D Globulin 2.3 Albumin/Globulin Ratio 1.5 Procalcitonin 0.19 Ur Collection Type Catheter Urine Color Lt-Yellow Urine Clarity Clear Urine pH 7.0 Ur Specific [place] 1.012 Urine Protein Negative Urine Glucose (UA) Negative Urine Ketones Negative Urine Blood 3+ A Urine Nitrite Negative Urine Bilirubin Negative Urine Urobilinogen (Auto) Negative Ur Leukocyte Esterase Negative Urine RBC 744 H Urine WBC 4 Ur Squamous Epith Cells 0 Urine Bacteria None Random Gentamicin Blood Type O Positive Antibody Screen NEGATIVE Crossmatch See Detail Blood Bank Wristband ID Yes 02/08/25 07:10 WBC RBC Hgb Hct MCV MCH MCHC RDW Std Deviation Plt Count Neut % (Auto) Lymph % (Auto) [place] % (Auto) Eos % (Auto) Baso % (Auto) Neut # (Auto) Lymph # (Auto) [place] # (Auto) Eos # (Auto) Baso # (Auto) Immature Gran # (Auto) Absolute Nucleated RBC Immature Gran % Nucleated RBC % PT INR APTT Sodium Potassium Chloride Carbon Dioxide Anion Gap BUN Creatinine Estim Creat Clear Calc eGFR BUN/Creatinine Ratio Glucose Calculated Osmolality Lactic Acid Calcium Corrected Calcium Total Bilirubin AST ALT Alkaline Phosphatase Troponin I B-Natriuretic Peptide Total Protein Albumin Globulin Albumin/Globulin Ratio Procalcitonin Ur Collection Type Urine Color Urine Clarity Urine pH Ur Specific [place] Urine Protein Urine Glucose (UA) Urine Ketones Urine Blood Urine Nitrite Urine Bilirubin Urine Urobilinogen (Auto) Ur Leukocyte Esterase Urine RBC Urine WBC Ur Squamous Epith Cells Urine Bacteria Random Gentamicin 0.7 L Blood Type Antibody Screen Crossmatch Blood Bank Wristband ID Assessment & Plan Problem List (1) endometritis: Problem details: Continue antibiotics till 24 hours afebrile. Status: Acute (2) Postoperative fever: Status: Acute Assessment and plan: Continue antibiotics till 24 hours afebrile. (3) Hypertension, uncontrolled: Status: Acute Assessment and plan: Continue oral labetalol. Consider adding Procardia if blood pressures are out of control. (4) Pregestational diabetes mellitus, modified White class B: Status: Acute Assessment and plan: Lantus 28 units in the morning given. 10 units lispro given at breakfast. Lispro has been held the rest of the day as her blood sugars are 107-118. I decreased her Lantus to 14 units tonight. Nutrition consult was called for. (5) Pre-eclampsia added to pre-existing hypertension: Status: Acute Assessment and plan: Continue oral labetalol 200 twice daily continue. Continue to monitor blood pressures. Time Spent With Patient Time: Total time spent is greater than 50% in coordination of care (as documented) at patient's floor/unit and/or counseling patient: Time with patient: 25 - 35 minutes
[2025-02-08] MEDS: Gentamicin 320 MG in SODIUM CHLORIDE 0.9% 100 ML 108 MG IV (20:27)
[2025-02-08] MEDS: LABETALOL 100 MG TABLET 300 MG PO (20:28)
[2025-02-09] VITALS (11 sets, daily range): BP systolic 113–172; BP diastolic 70–98; PULSE 91–109; RESP 18–20; TEMP 36.6–36.7; O2SAT 96–99
[2025-02-09] MEDS: AMPICILLIN/SULBAC INJ 3 GM in SODIUM CHLORIDE 0.9% (POP) 100 ML IV (03:40)
[2025-02-09 07:00] LABS: Basophils % (Auto) 0 % (0-2.5); Eosinophils # (Auto) 0.1 Thou/mm3 (0.0-0.5); Eosinophils % (Auto) 1 % (0-10); Hematocrit 30.9 % (36.0-46.0); Hemoglobin 10.2 g/dL (12.0-16.0); Immature Granulocytes % (Auto) 1 % (0-0); Immature Granulocytes Auto 0.05 Thou/mm3 (0.00-0.00); Lymphocytes # (Auto) 1.1 Thou/mm3 (1.0-4.8); Lymphocytes % (Auto) 12 % (10-50); Mean Corpuscular Hemoglobin 27.3 pg (25.0-35.0); Mean Corpuscular Volume 83 fL (80-100); Monocytes # (Auto) 0.6 Thou/mm3 (0.0-0.8); Monocytes % (Auto) 6 % (0-12); Neutrophils # (Auto) 7.8 Thou/mm3 (1.8-7.7); Neutrophils % (Auto) 80 % (37-80); Nucleated Red Blood Cell % 0 /100 WBC (0); Platelet Count 122 Thou/mm3 (140-440); RDW Standard Deviation 42.7 fL (36.4-46.3); Red Blood Count 3.73 Miln/mm3 (4.00-5.20); White Blood Count 9.7 Thou/mm3 (3.6-11.0)
--- NOTE | 2025-02-09 07:51 | PD.LDPPPRG ---
Subjective Subjective Interval history: Delivery type: , type II DM on insulin, gestational hypertension on labetalol with labile blood pressures. Patient of [facility] Patient doing well this morning. No acute complaints. Ambulating, tolerating p.o. and voiding without difficulty. HTN/Pre-Eclampsia screen: No chest pain, shortness of breath, headache, visual changes, epigastric or right upper quadrant pain. Breast-feeding, lochia diminishing. Bowel: Flatus+/ BM+ Exam Vital Signs Temp Pulse Resp BP Pulse Ox O2 Del Method 98.0 F 97 20 147/80 H 96 Room Air 02/09/25 03:38 02/09/25 03:38 02/09/25 03:38 02/09/25 03:38 02/09/25 03:38 02/09/25 03:38 Constitutional Constitutional: no acute distress Routine HEENT Exam Head: Present normocephalic and atraumatic Eye: Present EOMI and PERRL ENT: Present mucous membranes moist Routine Neck Exam Neck: Present supple and trachea midline Routine Respiratory Exam Respiratory: Present chest non-tender, lungs clear, normal breath sounds and no resp distress Routine Cardiovascular Exam Cardiovascular: Present RRR Routine Abdominal Exam Abdominal: Present soft and normoactive bowel sounds Routine Extremities Exam Extremities: Present full ROM Routine Skin Exam Skin: Present intact, dry and warm Routine Neurological Exam Neurological: Present alert, oriented X3 and CN II-XII intact Routine Psychiatric Exam Psychiatric: Present normal affect and normal thought process Objective Labs 02/09/25 06:10 02/07/25 20:27 Labs: Laboratory Results - last 24 hr 02/06/25 02/08/25 02/09/25 00:00 07:10 06:10 WBC 9.7 D RBC 3.73 L Hgb 10.2 L D Hct 30.9 L MCV 83 MCH 27.3 MCHC 33.0 RDW Std Deviation 42.7 Plt Count 122 L D Neut % (Auto) 80 Lymph % (Auto) 12 [place] % (Auto) 6 Eos % (Auto) 1 Baso % (Auto) 0 Neut # (Auto) 7.8 H Lymph # (Auto) 1.1 [place] # (Auto) 0.6 Eos # (Auto) 0.1 Baso # (Auto) 0.0 Immature Gran # (Auto) 0.05 H Absolute Nucleated RBC 0.00 Immature Gran % 1 H Nucleated RBC % 0 Random Gentamicin 0.7 L Crossmatch See Detail Assessment & Plan Problem List (1) endometritis: Status: Acute Assessment and plan: PPD/POD#2 1. Continue routine care 2. Transition to PO meds. 3. Encourage to ambulate/ breast-feed 4. Anticipate discharge home today. (2) Postoperative fever: Status: Acute (3) Hypertension, uncontrolled: Status: Acute (4) Pregestational diabetes mellitus, modified White class B: Status: Acute (5) Pre-eclampsia added to pre-existing hypertension: Status: Acute Time Spent With Patient Time: Total time spent is greater than 50% in coordination of care (as documented) at patient's floor/unit and/or counseling patient:
[2025-02-09] MEDS: INSULIN GLARGINE (Lantus) 5 UNIT/0.05 ML (PER 5 UNITS) 14 UNIT SC (07:58)
--- NOTE | 2025-02-09 08:00 | ESDS_ITS ---
DS: Providers Provider Date of admission: 02/06/25 23:20 Primary care physician: Physician No Primary/Family Admitting Provider: Melody Bernal MD Attending Provider on Admission: Aristides Nath MD Consults: 02/07/25 17:57 Referral Routine Comment: 02/08/25 12:41 Referral Nutritional Services Routine Comment: Type II DM. Post op day #1 Attending Provider on DC: Aristides Nath MD Discharging Provider: Aristides Nath MD DS: Diagnosis Discharge Diagnosis (1) endometritis: Status: Acute (2) Postoperative fever: Status: Acute (3) Hypertension, uncontrolled: Status: Acute (4) Pregestational diabetes mellitus, modified White class B: Status: Acute (5) Pre-eclampsia added to pre-existing hypertension: Status: Acute (6) Chronic hypertension affecting : Status: Acute Problem List Completed Was Problem List Reviewed/Reconciled?: Yes Summary/Hosp Course Brief History: 29 y/o @38w3d, presented to triage with contractions and vaginal bleeding. Patient has pregestational diabetes complicating this and was taking novolog 16 before each meal and 28/40 lantus. Hba1c In [facility] beginning of care was 10 which in third trimester has been in 6-7 range. Debby was scheduled for an IOL tomorrow. Of note , patient presented 2 days ago with elevated BP readings and was discharged home by the insulation nozzleman provider after preeclampsia labs were within normal range. Her BP however were elevated with non persistent sever range. Today on arrival debby has elevated BP, denied any headache, blurred vision and chest pain. Peripartum Data Delivery Method: Low Transverse Episiotomy Description: None Procedures: Procedures Operation Date: 02/07/25 16:15 Actual Procedure Side Surgeon p in OB Bilateral Dipak Raines MD Time Spent with Patient Time attestation: Total time spent providing and/or coordinating discharge services: Exam Vital Signs Temp Pulse Resp BP Pulse Ox O2 Del Method 98.0 F 97 20 147/80 H 96 Room Air 02/09/25 03:38 02/09/25 03:38 02/09/25 03:38 02/09/25 03:38 02/09/25 03:38 02/09/25 03:38 Discharge Plan Plan Patient Disposition: HOME (Self Care) Patient condition on transfer: Stable Prescriptions/Referrals Prescriptions/Med Rec: New hydrocodone-acetaminophen 5-325 mg Tablet 1 tab PO Q6HR MDD 4 PRN (Reason: Patient rated pain 9 to 10) 7 Days Qty: 28 0RF docusate sodium 100 mg Capsule 100 mg PO QDAY 30 Days Qty: 30 0RF ibuprofen 400 mg Tablet 800 mg PO Q8HR PRN (Reason: Pain Scale 4-6 (Moderate) 10 Days Qty: 30 0RF labetalol 400 mg tablet 400 mg PO TID 30 Days Qty: 90 2RF insulin glargine [Lantus Solostar U-100 Insulin] 100 unit/mL (3 mL) insulin pen 10 unit subcut QPM 30 Days Qty: 3 1RF insulin lispro [Humalog KwikPen Insulin] 100 unit/mL insulin pen 1 sliding scale dose subcut USEASDIRECTD 30 Days Qty: 15 1RF Discontinued acetaminophen 325 mg capsule 650 mg PO Q6H PRN (Reason: pain) Qty: 30 0RF aspirin 81 mg tablet,chewable 1 tab PO QDAY Patient Comments: CHEW AND SWALLOW 1 TABLET BY MOUTH ONCE DAILY No Action insulin aspart U-100 [Novolog U-100 Insulin aspart] 100 unit/mL solution 16 unit subcut .with meals PNV cmb#95-ferrous fumarate-FA [] 28 mg iron- 800 mcg tablet 1 tab PO QDAY Patient Comments: TAKE 1 TABLET BY MOUTH ONCE DAILY FOR 90 DAYS folic acid 1 mg tablet 1 mg PO QDAY Patient Comments: TAKE 1 TABLET BY MOUTH ONCE DAILY insulin glargine [Lantus U-100 Insulin] 100 unit/mL solution 28 unit SUBCUT .AM Patient Comments: 40U subq PM Referrals: No Primary/Family,Physician [Primary Care Provider] - Melody Bernal MD [Physician] - Patient/Caregiver Discharge Instructions Meds to Beds: Yes Discharge Activity: activity as tolerated Other Discharge Activity Instructions:: Follow up office [address] Bernal. Education Materials: C Section Dc, Diabetes, Controlling High Blood Pressure, Understanding Preeclampsia, Understanding the Pain Response, Measuring Your Pain, Medicine for Pain, Complementary Care for Pain, Communicating About Pain, Blood Pressure Check Steps, Insulin Injection Steps, Taking Opioid Medicines, Managing Post-Op Pain at Home, ED Using an Injection Pen, Gestational Hypertension Print Language: Kiswahili Stand Alone Forms: Jamila Sandoval Info., Patient Portal Info Letter, DC from Surgery Planned Discharge Date 02/09/25
[2025-02-09] MEDS: LABETALOL 100 MG TABLET 300 MG PO (08:03)
[2025-02-09] MEDS: IBUPROFEN TAB 400 MG TABLET 800 MG PO (08:15)
[2025-02-09] MEDS: PRENATAL VITAMIN/FE FUM/FA TABLET 1 TAB PO (08:16)
[2025-02-09] MEDS: DOCUSATE SOD 100 MG CAPSULE PO (08:16)
[2025-02-09] MEDS: NIFEdipine 10 MG CAPSULE PO ×2 (09:28→14:16)
[2025-02-09 23:36] LABS: Albumin, Random Urine 54 %; Alpha 1 Globulin, Random Urine 8 %; Alpha 2 Globulin, Random Urine 13 %; Beta Globulin, Random Urine 15 %; Gamma Globulin, Random Urine 10 %; Protein,Total,Random Urine 85 mg/dL (5-24); Protein/Creatinine Ratio 1414 mg/g creat (24-184)
[2025-02-11 07:10] LABS: Creatinine, Random Urine 60 mg/dL (20-275); Protein/Creatinine Ratio mg/mg 1.414 (0.024-0.184)
== END 2025-02-09 16:00 | disposition home or self-care (01) | DRG 540 ==
LOC: S4SX 02-07 16:07 → S4NX 02-07 16:17
PROVIDERS: Obstetrics & Gynecology; Specialist; Admitting Provider Student in an Organized Health Care Education/Training Program; Visit Provider Obstetrics & Gynecology
PROC: 10D00Z1 Extraction of Products of Conception, Low, Open Approach (ICD-10-PCS; CPT 59514; principal; 2025-02-07 16:00)
DX: O24.12 Pre-existing type 2 diabetes mellitus, in childbirth (principal); Z37.0 Single live birth; Z3A.38 38 weeks gestation of pregnancy; Z79.4 Long term (current) use of insulin; O77.0 Labor and delivery complicated by meconium in amniotic fluid; O69.1XX0 Labor and delivery complicated by cord around neck, with compression, not applicable or unspecified; R50.82 Postprocedural fever; O86.12 Endometritis following delivery; O11.4 Pre-existing hypertension with pre-eclampsia, complicating childbirth
CPT/HCPCS: 36415; 59025; 59409; 71045; 76805; 80053; 80170; 81001; 82570; 83605; 83615; 83880; 84145; 84156; 84166; 84484; 84550; 85025; 85384; 85610; 85730; 86780; 86850; 86900; 86901; 86923; 87040; 87086; 93005; 94762; J0295; J0360; J0689; J1580; J1650; J1815; J1885; J2274; J2405; J2590; J2795; J3010; J3490; J7050; J7120; S0191; A9270; J1920; J2270